=== PATIENT | female | born 1985 | race Caucasian/White ===

== ENCOUNTER 2018-09-06 10:29 | Emergency (ER) | payer OTHER ==
--- NOTE | 2018-09-06 10:48 | ED ---
General Adult HPI - General Chief complaint: Upper Respiratory Infection Stated complaint: poss pneumo Time Seen by Provider: 09/06/18 10:39 Source: patient Mode of arrival: ambulatory Limitations: no limitations - Related Data Home Medications Medication Instructions Recorded Confirmed Dextroamphetamine/Amphetamine 30 mg PO BID 09/06/18 09/06/18 [Adderall] Diazepam [Valium] 10 mg PO BID 09/06/18 09/06/18 Hydrocodone/Acetaminophen [[place] 1 tab PO Q4H PRN 09/06/18 09/06/18 10-325] PARoxetine HCL [Paxil] 20 mg PO DAILY 09/06/18 09/06/18 Previous Rx's Medication Instructions Recorded Azithromycin [Zithromax Z-pack] 0 mg PO DIRECTED #6 tab 09/06/18 Allergies Allergy/AdvReac Type Severity Reaction Status Date / Time No Known Allergies Allergy Unverified 09/06/18 11:15 Review of Systems ROS Statement: Those systems with pertinent positive or pertinent negative responses have been documented in the HPI. ROS Other: All systems not noted in ROS Statement are negative. Past Medical History Past Medical History: No Reported History History of Any Multi-Drug Resistant Organisms: MRSA Date of last positivie culture/infection: 2014 MDRO Source:: abd Additional Past Surgical History / Comment(s): bowel surg Smoking Status: Current every day smoker Past Alcohol Use History: Occasional Past Drug Use History: Marijuana General Exam Limitations: no limitations Course Vital Signs 09/06/18 10:33 Temperature 97.4 F L Pulse Rate 86 Respiratory 18 Rate Blood Pressure 128/63 O2 Sat by Pulse 100 Oximetry Medical Decision Making - Medical Decision Making Dictation was produced using [employer] dictation software. please excuse any grammatical, word or spelling errors. Chief Complaint: 33-year-old female comes in for cough and congestion. History of Present Illness: She is a 33-year-old tobacco abuser. She reports multiple days of productive cough. She states that her cough is positive for green sputum. Patient is worried that she has walking pneumonia versus bronchitis. There has been sickness in her son who is an asthmatic. Patient denies any dyspnea. Patient states she's had been having very runny nose recently. The ROS documented in this emergency department record has been reviewed and confirmed by me. Those systems with pertinent positive or negative responses have been documented in the HPI. All other systems are other negative and/or noncontributory. PHYSICAL EXAM: General Impression: Alert and oriented x3, not in acute distress HEENT: Normocephalic atraumatic, extra-ocular movements intact, pupils equal and reactive to light bilaterally, mucous membranes moist. Cardiovascular: Heart regular rate and rhythm, S1&S2 audible, no murmurs, rubs or gallops Chest: Lungs clear to auscultation bilaterally, no rhonchi, no wheeze, no rales Abdomen: Bowel sounds present, abdomen soft, non-tender, non-distended, no organomegaly Musculoskeletal: Pulses present and equal in all extremities, no peripheral edema Motor: Power 5/5 bilaterally, no focal deficits noted Neurological: CN II-XII grossly intact, no focal motor or sensory deficits noted Skin: Intact with no visualized rashes Psych: Normal affect and mood ED course: 33-year-old female presents with clinical presentation consistent with URI symptoms. Vital signs upon arrival are within acceptable limits. Patient is well-appearing. Physical examination is benign. Influenza test negative. Chest x-ray unremarkable. Patient given antibiotics to be taken in a unty-aok-syw fashion. She is told to call his antibiotics and reassess her symptoms in 2-3 days if not improving she is told to take it is not that she is told to discuss the antibiotics. Patient understandable agreeable to plan. The follow-up with PCP upon discharge. - Lab Data Lab Results 09/06/18 Range/Units 11:04 Influenza Type A RNA Not Detected (Not Detectd) Influenza Type B (PCR) Not Detected (Not Detectd) Disposition Clinical Impression: Common cold Disposition: HOME SELF-CARE Condition: Good Instructions (If sedation given, give patient instructions): Upper Respiratory Infection (ED) Prescriptions: Azithromycin [Zithromax Z-pack] 0 mg PO DIRECTED #6 tab Is patient prescribed a controlled substance at d/c from ED?: No Referrals: Bandar England DO [Primary Care Provider] - 1-2 days Time of Disposition: 11:58
--- NOTE | 2018-09-06 11:38 | XR ---
EXAMINATION TYPE: XR chest 2V DATE OF EXAM: 09/06/2018 COMPARISON: NONE HISTORY: Chest pain TECHNIQUE: Frontal and lateral views of the chest are obtained. FINDINGS: There is no focal air space opacity. No evidence for pneumothorax. No pleural effusion. The cardiac silhouette size is within normal limits. The osseous structures are grossly intact. IMPRESSION: 1. No acute cardiopulmonary process.
[2018-09-06 12:06] VITALS: BP 114/76; PULSE 80; RESP 19; TEMP 98.2
== END 2018-09-06 12:06 | disposition home or self-care (01) ==
LOC: EC 10:29
DX: J00 Acute nasopharyngitis [common cold] (principal); F17.200 Nicotine dependence, unspecified, uncomplicated; Z86.14 Personal history of Methicillin resistant Staphylococcus aureus infection; Z79.899 Other long term (current) drug therapy
CPT/HCPCS: 71046; 87502; 99283

== ENCOUNTER → 2019-09-09 | Outpatient (CLI) | payer OTHER | END | disposition home or self-care (01) | LOC: LABWHC1 15:16 | PROVIDERS: ATTEND Physician Assistant | DX: Z32.01 Encounter for pregnancy test, result positive (principal) | CPT/HCPCS: 36415; 84702 ==

== ENCOUNTER 2020-09-29 16:59 | Emergency (ER) | payer OTHER ==
[2020-09-29 17:04] VITALS: RESP 18; TEMP 98
[2020-09-29 17:34] LABS: Appearance,Urine Clear (Clear); Bilirubin,Urine Negative (Negative); Blood,Urine Negative (Negative); Color,Urine Yellow; Glucose,Urine (UA) Negative (Negative); Ketones,Urine Negative (Negative); Leukocyte Esterase,Urine Negative (Negative); Nitrite,Urine Negative (Negative); PH, Urine 6.5 (5.0-8.0); Protein,Urine Negative (Negative); Specific Gravity,Urine 1.029 (1.001-1.035); Urobilinogen,Urine <2.0 mg/dL (<2.0)
[2020-09-29] MEDS ORDERED: HYDROcodone/APAP 5-325MG 1 EACH TAB PO STA (18:05)
--- NOTE | 2020-09-29 18:10 | CT ---
EXAMINATION TYPE: CT brain wo con DATE OF EXAM: 09/29/2020 COMPARISON: None available. HISTORY: Left sided parietal injury 2 days ago. headache and weakness CT DLP: 1064.4 mGycm. Automated Exposure Control for Dose Reduction was Utilized. TECHNIQUE: CT scan of the head is performed without contrast. FINDINGS: There is no acute intracranial hemorrhage, mass effect, or midline shift identified. The ventricles and sulci are within normal limits in size. The globes are intact and the visualized sin uses are clear. IMPRESSION: No acute intracranial hemorrhage, mass effect, or midline shift is seen.
[2020-09-29 18:20] VITALS: BP 114/63; PULSE 83
--- NOTE | 2020-09-29 18:21 | XR ---
Result: History: Low back pain status post fall. Comparison: None available. Technique: Frontal and lateral views of the lumbar spine. Findings: The bone mineralization is normal. Images of the lumbar spine demonstrate 5 lumbar-type vertebrae. There is suggestion of L4 right kirby sverse process fracture. The vertebral body heights are preserved throughout the imaged lumbar spine . The vertebral elements are in anatomic alignment. The disc heights are maintained. Right lower quadrant post surgical changes seen. Impression: Suggestion of L4 right transverse process fracture. If there is continued clinical concern, recommend CT or MR for further evaluation.
--- NOTE | 2020-09-29 18:37 | ED ---
General Adult HPI - General Chief complaint: Head Injury Stated complaint: Fall, Head Injury Time Seen by Provider: 09/29/20 17:05 Source: patient Mode of arrival: ambulatory Limitations: no limitations - History of Present Illness Initial comments: 35-year-old female presents to the emergency room for a chief complaint of head injury and fall. 2 days ago patient slipped on ice and fell hitting her head and back. No loss of consciousness. No blood thinners. Patient states she has had a headache since that time. States it hurts to press on that part of her head. Patient denies any nausea or vomiting. Does admit to light sensitivity. Denies neck pain. Patient also claims of some mild low back pain. States it flared her chronic back pain and sciatica towards the right leg. Denies weakness of the lower extremities, fevers, bladder or bowel changes, or saddle anesthesia.Patient has no other complaints at this time including shortness of breath, chest pain, abdominal pain, nausea or vomiting, headache, or visual changes. - Related Data Home Medications Medication Instructions Recorded Confirmed Dextroamphetamine/Amphetamine 30 mg PO BID 09/06/18 09/06/18 [Adderall] Diazepam [Valium] 10 mg PO BID 09/06/18 09/06/18 Hydrocodone/Acetaminophen [[place] 1 tab PO Q4H PRN 09/06/18 09/06/18 10-325] PARoxetine HCL [Paxil] 20 mg PO DAILY 09/06/18 09/06/18 Previous Rx's Medication Instructions Recorded Azithromycin [Zithromax Z-pack] 0 mg PO DIRECTED #6 tab 09/06/18 Allergies Allergy/AdvReac Type Severity Reaction Status Date / Time No Known Allergies Allergy Verified 09/29/20 17:00 Review of Systems ROS Statement: Those systems with pertinent positive or pertinent negative responses have been documented in the HPI. ROS Other: All systems not noted in ROS Statement are negative. Past Medical History Past Medical History: No Reported History History of Any Multi-Drug Resistant Organisms: MRSA Date of last positivie culture/infection: 2014 MDRO Source:: abd Additional Past Surgical History / Comment(s): bowel surg, oophrectomy Past Psychological History: No Psychological Hx Reported Smoking Status: Current every day smoker Past Alcohol Use History: None Reported Past Drug Use History: Marijuana General Exam Limitations: no limitations General appearance: alert, in no apparent distress Head exam: Present: atraumatic, normocephalic, normal inspection Eye exam: Present: normal appearance, PERRL, EOMI. Absent: scleral icterus, conjunctival injection ENT exam: Present: normal exam, mucous membranes moist Neck exam: Present: normal inspection, full ROM. Absent: tenderness Respiratory exam: Present: normal lung sounds bilaterally. Absent: respiratory distress, wheezes Cardiovascular Exam: Present: regular rate, normal rhythm, normal heart sounds GI/Abdominal exam: Present: soft, normal bowel sounds. Absent: distended, tenderness, guarding, rebound, rigid Extremities exam: Present: full ROM (Strength 5 out of 5 in bilateral lower extremities.), normal capillary refill (Ancillary refill less than 2 seconds, DP pulse 2+ bilateral lower extremities.), other (Sensation intact in bilateral lower extremities.) Back exam: Present: paraspinal tenderness, vertebral tenderness (Generalized lumbar tenderness. There is no ecchymosis or evidence of external trauma.) Neurological exam: Present: alert, oriented X3, normal gait, other (GCS 15) Course Vital Signs 09/29/20 09/29/20 17:00 18:18 Temperature 98 F Pulse Rate 94 83 Respiratory 18 18 Rate Blood Pressure 110/74 114/63 O2 Sat by Pulse 100 100 Oximetry Medical Decision Making - Medical Decision Making Vitals are stable. HPI and physical exam as documented. CT brain was obtained which shows no acute cranial hemorrhage, mass effect, or midline shift. Given headache after fall patient likely has a concussion. I recommended Motrin and Tylenol and plenty of rest. She will see primary care this week for recheck. Patient also has a suggestion of L4 right transverse process fracture. She does have generalized tenderness in this area however no red flag symptoms. No weakness of the legs. No surgical intervention required. Patient can follow up with primary care for this. She will return here for any worsening symptoms. - Lab Data Lab Results 09/29/20 09/29/20 Range/Units 17:20 17:20 Urine Color Yellow Urine Appearance Clear (Clear) Urine pH 6.5 (5.0-8.0) Ur Specific [place] 1.029 (1.001-1.035) Urine Protein Negative (Negative) Urine Glucose (UA) Negative (Negative) Urine Ketones Negative (Negative) Urine Blood Negative (Negative) Urine Nitrite Negative (Negative) Urine Bilirubin Negative (Negative) Urine Urobilinogen <2.0 (<2.0) mg/dL Ur Leukocyte Esterase Negative (Negative) Urine HCG, Qual Not Detected (Not Detectd) Disposition Clinical Impression: Head injury, Lumbar transverse process fracture Disposition: HOME SELF-CARE Condition: Good Instructions (If sedation given, give patient instructions): Concussion (ED), Back Pain (ED) Additional Instructions: Please take Motrin and Tylenol for pain. Please follow-up with primary care in 1-2 days. Return to the emergency room for any worsening symptoms. Is patient prescribed a controlled substance at d/c from ED?: No Referrals: Jair Cullen MD [Primary Care Provider] - 1-2 days Time of Disposition: 18:35
== END 2020-09-29 18:47 | disposition home or self-care (01) ==
LOC: EC 16:59
DX: S09.90XA Unspecified injury of head, initial encounter (principal); S32.009A Unspecified fracture of unspecified lumbar vertebra, initial encounter for closed fracture; F17.200 Nicotine dependence, unspecified, uncomplicated; Z79.899 Other long term (current) drug therapy; W00.0XXA Fall on same level due to ice and snow, initial encounter; Y92.009 Unspecified place in unspecified non-institutional (private) residence as the place of occurrence of the external cause
CPT/HCPCS: 70450; 72100; 81003; 81025; 99284